=== PATIENT | female | born 1980 | race Caucasian/White ===

== ENCOUNTER → 2017-07-08 | Outpatient (CLI) | payer BC ==
--- NOTE | 2017-07-09 10:46 | US ---
EXAM DESCRIPTION: Pelvic,Non-OB: Ultrasound. CLINICAL HISTORY: ABNORMAL UTERINE AND VAGINAL BLEEDING COMPARISON: None. TECHNIQUE: Endovaginal scanning; color Doppler and two-dimensional modes. FINDINGS: Uterus 10.2 x 6.5 x 5.5 cm cc. Endometrial thickness is 10 mm. Myometrium appears heterogeneous. Isoechoic heterogeneous mass abutting the endometrium measuring 3.0 x 1.9 x 1.5 cm. A second mass with similar appearance measures 2.1 x 2.1 cm, abutting the posterior capsule. Uterus not retroverted. Cervix contains a 7.3 mm cyst. Cul-de-sac contains no fluid. Left ovary 4.3 x 3.5 x 2.8 cm. Normal Doppler vascularity. Anechoic mass with well-defined loyd nonvascular and posterior acoustic enhancement measuring 4.0 x 4.2 x 2.8 cm cyst. No adnexal mass or free fluid. Right ovary 2.6 x 2.5 x 1.2 cm. (Note: Annotation on Images says "left", confirmed with technologist.) Normal Doppler vascularity. 1.3 x 1.2 x 1.0 cm follicle, no cysts. No adnexal mass or free fluid. IMPRESSION: 1. 2 fibroids in the uterus, the largest is 3 cm long axis and may be submucosal. Borderline endometrial thickening which may be related to menstrual cycle. Normal position of the uterus. 7.3 mm nabothian cyst in the cervix. No fluid in the cul-de-sac. 2. Left ovary with 4.2 cm simple cyst. Normal vascularity in the ovary. 1.3 cm follicle right ovary. [facility] Best Practice recommendations suggest no follow-up imaging recommended in a premenopausal patient with simple cyst less than 5 cm diameter. Please see below.* *Recommendations for f/u of ovarian anechoic simple cyst, simple cyst with single thin <3 mm septation, or focal calcification in wall of cyst (1): Pre-menopause: <= 5 cm No follow-up imaging recommended >5 cm - <=7 cm US f/u annually >7 cm Consider MR w/IVC or surgical evaluation Post-menopause (>=1 year from last menstrual period): <=3 cm No follow-up imaging recommended >3 cm - <=7 cm US f/u annually >7 cm Consider MR w/IVC or surgical evaluation (1) Recommendations based on 2010 SRU Consensus Conference Statement on the Management of Asymptomatic Ovarian and Other Adnexal Cysts Imaged at US: Radiology. 2009;256(3):463-06 Electronically signed by: Froylan Cline MD 07/09/2017 10:44 AM [facility]
== END | disposition home or self-care (01) ==
LOC: LAB.O 11:47
PROVIDERS: ATTEND Nurse Practitioner Family
DX: N93.9 Abnormal uterine and vaginal bleeding, unspecified (principal)

== ENCOUNTER 2017-11-26 00:38 | Emergency (ER) | payer BC ==
[2017-11-26 00:54] VITALS: TEMP 97.6
[2017-11-26] MEDS ORDERED: diazePAM INJ 10 MG/2 ML SYG IV ONE (01:03)
[2017-11-26] MEDS ORDERED: MAGNESIUM SULFATE PREMIX 2GM 2 GM in PREMIX BAG 1 BAG IVPB ONE (01:57)
[2017-11-26] MEDS ORDERED: MAGNESIUM SULFATE PREMIX 2GM 50 ML IVPB ONE (02:12)
[2017-11-26 02:23] VITALS: O2SAT 97
[2017-11-26] MEDS ORDERED: TOPIRAMATE 25 MG TAB PO ONE (03:28)
[2017-11-26] MEDS ORDERED: levETIRAcetam 250 MG TAB PO ONE (03:28)
--- NOTE | 2017-11-26 03:30 | ED.PDOC ---
History of Present Illness - General Chief Complaint: Neuro Symptoms/Deficits Stated Complaint: seizure Time Seen by Provider: 11/26/17 00:47 Source: patient Exam Limitations: no limitations - History of Present Illness Initial Comments: the patient is a 37-year-old female presenting to emergency room with her secondary to 2 generalized tonic-clonic seizures that lasted 3minutes each while at home. Normally she has partial seizures and her last generalized seizure was back in March. She was feeling fine prior to this. No injury from this. She is mildly moderately postictal. No recent trauma. No recent change in medications. Timing/Duration: unsure Severity: moderate Improving Factors: nothing Associated Symptoms: denies symptoms Allergies/Adverse Reactions: Allergies Penicillin G Allergy (Unknown, Verified 08/27/15 16:27) Home Medications: Ambulatory Orders Oxcarbazepine 600 mg PO BID 08/27/15 levoFLOXacin [Levaquin] 500 mg PO QDAC #7 tab 08/27/15 Levetiracetam 500 mg PO 11/26/17 Propanolol 40 11/26/17 Sumatriptan Succinate [Imitrex] 25 mg PO 11/26/17 Topiramate [Topamax] 100 mg PO 11/26/17 Review of Systems - Review of Systems Constitutional: States: malaise EENTM: States: no symptoms reported Respiratory: States: no symptoms reported Cardiology: States: no symptoms reported Gastrointestinal/Abdominal: States: no symptoms reported Genitourinary: States: no symptoms reported Musculoskeletal: States: no symptoms reported Skin: States: no symptoms reported Neurological: States: see HPI Endocrine: States: no symptoms reported All other Systems: No Change from Baseline Past Medical History (General) - Patient Medical History Hx Seizures: Yes Hx Congestive Heart Failure: No Hx Diabetes: No Surgical History: appendectomy - Vaccination History Hx Tetanus, Diphtheria Vaccination: Yes Hx Influenza Vaccination: No Hx Pneumococcal Vaccination: No - Social History Hx Tobacco Use: No - Female History Patient : No - Triage Comment ED Triage Comment: spouse states histroy of seizure, and had one Saturday, then again 30 minutes ago Family Medical History - Family History Mother Family History: Unknown Living Status: Unknown Physical Exam - Physical Exam General Appearance: Other - The patient is arousable to verbal command. Extraocular movements are intact. She is postictal. 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 Source of these as opposed to her routine partial seizures is uncertain. She has been given a dose extra of Keppra and Topamax. She is also given a dose of IV Ativan. The patient did have some mild hypo-magnesemia and has received a dose of that. She is to follow-up with her primary care doctor later this week. She needs to continue her seizure medications. ER warnings were given. - Results/Orders Results/Orders: 11/26/17 03:28 Topiramate [Topamax] 200 mg PO ONCE ONE levETIRAcetam TABLETS [Keppra] 500 mg PO ONCE ONE Laboratory Results - last 24 hr 11/26/17 11/26/17 11/26/17 01:10 01:10 01:15 WBC 12.3 H RBC 4.30 Hgb 12.6 Hct 38.0 MCV 88.3 MCH 29.3 MCHC 33.2 RDW 13.0 Plt Count 263 MPV 9.2 Absolute Neuts (auto) 7.80 H Absolute Lymphs (auto) 3.40 Absolute Monos (auto) 0.80 Absolute Eos (auto) 0.20 Absolute Basos (auto) 0.10 Neutrophils % 63.7 Lymphocytes % 27.4 Monocytes % 6.3 Eosinophils % 1.5 Basophils % 1.1 Sodium 135 Potassium 3.9 Chloride 104 Carbon Dioxide 25 Anion Gap 9.9 L BUN 11 Creatinine 0.53 L BUN/Creatinine Ratio 20.8 H POC Glucose 126 H Random Glucose 134 H Serum Osmolality 271.5 L Calcium 8.3 L Magnesium 1.6 L Total Bilirubin 0.2 AST 18 ALT 16 Alkaline Phosphatase 53 Serum Total Protein 6.9 Albumin 3.2 Globulin 3.7 H Albumin/Globulin Ratio 0.9 L Urine Color Urine Appearance Urine pH Ur Specific [place] Urine Protein Urine Glucose (UA) Urine Ketones Urine Blood Urine Nitrite Urine Bilirubin Urine Urobilinogen Ur Leukocyte Esterase Urine RBC Urine WBC Ur Epithelial Cells Urine Bacteria 11/26/17 01:56 WBC RBC Hgb Hct MCV MCH MCHC RDW Plt Count MPV Absolute Neuts (auto) Absolute Lymphs (auto) Absolute Monos (auto) Absolute Eos (auto) Absolute Basos (auto) Neutrophils % Lymphocytes % Monocytes % Eosinophils % Basophils % Sodium Potassium Chloride Carbon Dioxide Anion Gap BUN Creatinine BUN/Creatinine Ratio POC Glucose Random Glucose Serum Osmolality Calcium Magnesium Total Bilirubin AST ALT Alkaline Phosphatase Serum Total Protein Albumin Globulin Albumin/Globulin Ratio Urine Color Yellow Urine Appearance Clear Urine pH 8.5 H Ur Specific [place] 1.015 Urine Protein Trace Urine Glucose (UA) Negative Urine Ketones Negative Urine Blood Trace-intact H Urine Nitrite Negative Urine Bilirubin Negative Urine Urobilinogen 0.2 Ur Leukocyte Esterase Negative Urine RBC 0-1 Urine WBC 0-1 Ur Epithelial Cells 5-10 Urine Bacteria 2+ H - EKG/XRAY/CT CT Ordered: No Departure - Departure Clinical Impression: Hypomagnesemia Epilepsy Qualifiers: Epilepsy type: partial symptomatic Partial seizure type: with complex partial seizures Intractability: not intractable Status epilepticus: without status epilepticus Qualified Code(s): G40.209 - Localization-related (focal) (partial) symptomatic epilepsy and epileptic syndromes with complex partial seizures, not intractable, without status epilepticus Disposition: Discharge to Home or Self Care Condition: Fair Departure Forms: ED Discharge - Pt. Copy, Patient Portal Self Enrollment Instructions: DI for Seizure (Not Epilepsy/Seizure Disorder) Diet: regular diet Activity: increase activity as tolerated Referrals: STACEY GASTELUM IV, M[employer]ING MACHINE FEEDER [Primary Care Provider] - 1-5 Days Home Medications: Ambulatory Orders Oxcarbazepine 600 mg PO BID 08/27/15 levoFLOXacin [Levaquin] 500 mg PO QDAC #7 tab 08/27/15 Levetiracetam 500 mg PO 11/26/17 Propanolol 40 11/26/17 Sumatriptan Succinate [Imitrex] 25 mg PO 11/26/17 Topiramate [Topamax] 100 mg PO 11/26/17 Additional Instructions: the patient is a 37-year-old female with epilepsy presenting after 2 fairly brief generalized seizures. Source of these as opposed to her routine partial seizures is uncertain. She has been given a dose extra of Keppra and Topamax. She is also given a dose of IV Ativan. The patient did have some mild hypo-magnesemia and has received a dose of that. She is to follow-up with her primary care doctor later this week. She needs to continue her seizure medications. ER warnings were given.
[2017-11-26 03:59] VITALS: BP 110/70
== END 2017-11-26 04:00 | disposition home or self-care (01) ==
LOC: ER 00:38
DX: G40.209 Localization-related (focal) (partial) symptomatic epilepsy and epileptic syndromes with complex partial seizures, not intractable, without status epilepticus (principal); E83.42 Hypomagnesemia; Z79.899 Other long term (current) drug therapy
CPT/HCPCS: 36415; 36416; 80053; 81001; 82948; 83735; 85025; J2060; J3475

== ENCOUNTER 2018-05-19 11:46 | Emergency (ER) | payer BC ==
[2018-05-19 12:01] VITALS: TEMP 97.7
[2018-05-19] MEDS: diazePAM INJ 10 MG/2 ML SYG IM ONE (12:26)
--- NOTE | 2018-05-19 12:28 | ED.PDOC ---
History of Present Illness - General Chief Complaint: General Stated Complaint: back pain Time Seen by Provider: 05/19/18 11:50 Source: patient Exam Limitations: physical impairment - History of Present Illness Initial Comments: PT PRESENTS TO THE ED WITH COMPLAINT OF LOW BACK PAIN FOR THE PAST 3 DAYS THAT BECAME ACUTELY WORSE TODAY WHEN SHE BENT FORWARD. PT DENIES URINARY OR BOWEL SYMPTOMS. Severity: severe Improving Factors: immobilization Worsening Factors: movement Associated Symptoms: denies symptoms Allergies/Adverse Reactions: Allergies Penicillin G Allergy (Unknown, Verified 05/19/18 12:01) Home Medications: Ambulatory Orders Oxcarbazepine 600 mg PO BID 08/27/15 Levetiracetam 500 mg PO BID 11/26/17 Sumatriptan Succinate [Imitrex] 25 mg PO DAILY PRN MDD 3 doses weekly 11/26/17 Topiramate [Topamax] 400 mg PO BID 11/26/17 Acetaminophen W/ Codeine [Tylenol W/ CODEINE #3] 1 ea PO Q4HR PRN #24 05/19/18 Diazepam [Valium] 2 mg PO Q6HR PRN #14 tab 05/19/18 Ibuprofen 800 mg PO Q8HR PRN #30 tab 05/19/18 Review of Systems - Review of Systems Constitutional: Denies: chills, fever EENTM: Denies: nose congestion, throat pain Respiratory: Denies: cough, short of breath Cardiology: Denies: chest pain, palpitations Gastrointestinal/Abdominal: Denies: nausea, vomiting Musculoskeletal: States: see HPI, back pain, muscle pain Skin: Denies: change in color, rash Neurological: States: no symptoms reported Endocrine: States: no symptoms reported Past Medical History (General) - Patient Medical History Hx Seizures: Yes Hx Congestive Heart Failure: No Hx Diabetes: No Surgical History: appendectomy, other - Vaccination History Hx Tetanus, Diphtheria Vaccination: Yes Hx Influenza Vaccination: No Hx Pneumococcal Vaccination: No - Social History Hx Tobacco Use: No Hx Alcohol Use: No - Female History Patient : No Family Medical History - Family History Mother Family History: Unknown Living Status: Unknown Physical Exam - Physical Exam General Appearance: Alert, Obvious distress, Well Developed, Well Groomed, Well Hydrated Ears, Nose, Throat: hearing grossly normal Neck: normal inspection Back Exam: normal inspection, no CVA tenderness, vertebral tenderness - MIDLINE LUMBAR Neurologic: alert, normal mood/affect, oriented x 3 Skin Exam: normal color, warm/dry Progress - Progress Progress: 05/19/18 13:05 PT CONTINUES TO COMPLAIN OF SEVERE PAIN AFTER IM TORADOL, IM MORPHINE, AND PO VALIUM. IM DILAUDID ORDERED. 05/19/18 13:41 PT REPORTS NO IMPROVEMENT IN PAIN AFTER IM DILAUDID. WILL SEND PT FOR CT LUMBAR SPINE. 05/19/18 14:29 PT REPORTS ONLY MINIMAL IMPROVEMENT IN PAIN. PT ABLE TO AMBULATE IN THE ED WITHOUT DIFFICULTY. CT FINDINGS DISCUSSED. FOLLOW UP AND AFTER CARE DISCUSSED. Departure - Departure Clinical Impression: Lumbar back pain Time of Disposition: 14:30 Disposition: Discharge to Home or Self Care Condition: Fair Departure Forms: ED Discharge - Pt. 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 [Primary Care Provider] - 1-5 Days Prescriptions: Acetaminophen W/ Codeine [Tylenol W/ CODEINE #3] 1 ea PO Q4HR PRN #24 PRN Reason: Pain Diazepam [Valium] 2 mg PO Q6HR PRN #14 tab PRN Reason: Muscle Spasms Ibuprofen 800 mg PO Q8HR PRN #30 tab PRN Reason: Pain Home Medications: Ambulatory Orders Oxcarbazepine 600 mg PO BID 08/27/15 Levetiracetam 500 mg PO BID 11/26/17 Sumatriptan Succinate [Imitrex] 25 mg PO DAILY PRN MDD 3 doses weekly 11/26/17 Topiramate [Topamax] 400 mg PO BID 11/26/17 Acetaminophen W/ Codeine [Tylenol W/ CODEINE #3] 1 ea PO Q4HR PRN #24 05/19/18 Diazepam [Valium] 2 mg PO Q6HR PRN #14 tab 05/19/18 Ibuprofen 800 mg PO Q8HR PRN #30 tab 05/19/18
[2018-05-19] MEDS: KETOROLAC TROMETHAMINE INJ 60 MG/2 ML VIAL IM ONE (12:30)
[2018-05-19] MEDS: MORPHINE SULFATE INJ 10 MG/ML VIAL IM ONE (12:31)
[2018-05-19] MEDS: diazePAM 5 MG TAB PO ONE (12:38)
[2018-05-19] MEDS: HYDROmorphone HCL INJ 2 MG/ML VIAL IM ONE (13:12)
--- NOTE | 2018-05-19 14:15 | CT ---
EXAM DESCRIPTION: Lumbar Spine CLINICAL HISTORY: 38 years Female, SEVERE LOW BACK PAIN COMPARISON: None. TECHNIQUE: Contiguous axial images through the lumbar spine were obtained without intravenous contrast administration. Sagittal and coronal reconstructions were reviewed. This exam was performed according to our departmental dose-optimization program, which includes automated exposure control, adjustment of the mA and/or kV according to patient size and/or use of iterative reconstruction technique. FINDINGS: Straightening of the normal lordotic curvature of the lumbar spine is noted. The vertebral body heights are well-maintained with no acute compression deformity. Mild degenerative disc disease is noted at L5-S1 level. No evidence of spondylolysis or spondylolisthesis. The visualized prevertebral and paravertebral soft tissues appear normal. IMPRESSION: Mild degenerative disc disease is noted L5-S1 level. Otherwise, normal CT of the lumbar spine. Electronically signed by: Leann Rivero MD 05/19/2018 2:13 PM [facility]
[2018-05-19 14:48] VITALS: BP 119/83; O2SAT 97
== END 2018-05-19 14:40 | disposition home or self-care (01) ==
LOC: ER 11:46
DX: M54.5 Low back pain (principal); M51.37 Other intervertebral disc degeneration, lumbosacral region; R56.9 Unspecified convulsions; Z79.899 Other long term (current) drug therapy; Z88.0 Allergy status to penicillin

== ENCOUNTER → 2020-05-03 | Outpatient (CLI) | payer BC | LOC: GMAM 10:51 | PROVIDERS: ATTEND Family Medicine | DX: B34.2 Coronavirus infection, unspecified (principal); R71.8 Other abnormality of red blood cells; R09.02 Hypoxemia ==